=== PATIENT | female | born 1975 | race Caucasian/White ===

== ENCOUNTER 2025-01-02 11:30 | Outpatient (AMB) | payer OTHER, SELFPAY ==
--- NOTE | 2025-01-02 12:13 | A.OFFVIS_ITS ---
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 Allergies azithromycin (From Zithromax) Allergy (Mild, Verified 12/28/24 14:10) Vomiting Medication List - Last Reconciled 01/02/25 by Becky Giraldo MD albuterol sulfate 90 mcg/actuation (Ventolin HFA) 2 puffs inhalation Q6H PRN albuterol sulfate 2.5 mg inhalation Q4-6H PRN atorvastatin (Lipitor) 40 mg PO DAILY benralizumab 30 mg subcut Q8W budesonide 0.25 mg inhalation BID cetirizine (All Day Allergy (cetirizine)) 10 mg PO DAILY PRN cyclobenzaprine 10 mg PO TID 20 days estradiol 1 mg PO DAILY fluticasone propion-salmeterol 500-50 mcg/dose (Wixela Inhub) 1 inh inhalation BID ibuprofen 600 mg PO TID ipratropium-albuterol 20-100 mcg/actuation (Combivent Respimat) 1 puff inhalation Q4H lorazepam 0.5 mg PO DAILY PRN prednisone 60 mg (3 x 20 mg) PO DAILY 10 days quetiapine 400 mg PO BEDTIME HPI Comments Details: This is a 49-year-old right-handed woman who is here for evaluation of bilateral facial pain, right greater than left since October 2025 and a 1 month history of left lower extremity numbness. In 2009 she developed left optic neuritis and subsequently a right optic neuritis from which she recovered completely over 2 or 3 weeks after treatment with intravenous steroids. She was seen by Dr. Alejo peraza at that time and worked up for MS. Previous MRIs were normal. There were no further problems after that so she was not seen in follow-up. Since October she has had bilateral lower facial pain that 1st started on the right side affecting the cheek and the jaw and sometimes switches over to the left side. She is also in constant bilateral pain. She has been evaluated by dentist and rn outpatient surgery and has no obvious explanation for it. In the last month, starting in November she has also had recurrence of the left lower extremity numbness which has not changed significantly. She has to be careful walking to make sure that her foot is in the right place. There is no loss of strength. She also feels exhausted. The pain is fairly constant and affects her sleep as well. Past history is also remarkable for anxiety and insomnia for which she is on Seroquel 400 mg a day and trazodone 50 mg at bedtime. Part of her recent workup has included an MRI of the brain which was normal and an MRI of the thoracic and cervical spines which also showed no evidence of demyelinating disease. There is mild cervical disc disease at C4-5 level. [facility] Medical History (Updated 01/02/25 @ 12:22 by Becky Giraldo MD) Post-COVID syndrome Palpitations Orthostatic dizziness Obesity Multiple sclerosis Long COVID Cervical cancer Hypothyroidism (acquired) Hyperlipemia Fatigue Family history of early CAD Dyslipidemia COVID-19 Asthma Anxiety and depression ADHD Surgical History (Updated 12/28/24 @ 14:01 by ELSIE Smith) Hx of tonsillectomy History of radical hysterectomy Family History (Updated 12/28/24 @ 14:12 by ELSIE Smith) Father CAD (coronary artery disease) Paternal Grandmother Breast cancer Stroke Social History (Updated 12/28/24 @ 14:11 by ELSIE Smith) Alcohol intake: never Patient Tobacco Use Status: Never used Tobacco e-Cigarette/Vaping Use: Never Used Review of Systems Const Details: Weight gain, some difficulty walking because of the left leg numbness bilateral facial pain, numbness and tingling left leg some dizziness and anxiety. Eyes feel heavy. Reports fatigue Musc Reports numbness Neuro Reports numbness Psych Reports anxiety Endo Reports fatigue Physical Exam Neuro Other: ?Mini Mental Status Exam Level of Consciousness:?Alert.? Orientation:?Knows correct year, month, date, day and season.?Knows correct city, county and state. Knows correct location and floor.? Registration:?Able to register 3 objects.? Attention:?Serial 7's performed accurately.? Recall:?Able to recall 3 out of 3 objects.? Language:?Normal spontaneous speech, fluency, repetition, naming, comprehension, reading, and writing.? Total Score:?30/30.? Neurological Abnormal neurological findings:??none.? Mental Status:?Alert and oriented X 3.?Normal attention, orientation, memory, and affect.? Cranial Nerves:?Pupils are equal, round and reactive to light. Fundoscopy shows normal disc bilaterally. External occular muscles are intact. Visual ureña are full, no ptosis. Face is symmetrical, no facial weakness or droop. Facial sensations are normal. Tongue protrudes in midline. Palate elevates symmetrically. Shoulder shrugging is normal.? Motor Examination:?Normal muscle tone, bulk and strength.?No atrophy or fasciculations.?No drift of the extended upper extremities.?Deep tendon reflexes are 2+.?Plantars are flexor.? Motor Strength:? Proximal Muscles (out of 5):?5 Distal Muscles (out of 5):?5 Neck Flexors (out of 5):?5 Neck Extensors (out of 5):?5 Deltoid (out of 5):?5 Biceps (out of 5):?5 Triceps (out of 5):?5 Serratus Anterior (out of 5):?5 Wrist Extensors (out of 5):?5 APB (out of 5):?5 Finger Spread (out of 5):?5 Ileopsoas (out of 5):?5 Quadriceps (out of 5):?5 Hamstrings (out of 5):?5 Tibialis Anterior (out of 5):?5 Peronei (out of 5):?5 EDB (out of 5):?5 Gastrocnemius (out of 5):?5 Straight Leg Raising:?90 degrees.? Sensory Exam:?Normal light touch, temperature, pinprick, vibration and joint-position sensations.?Rhomberg sign is absent.? Coordination:?No ataxia,?no titubation,?gpfrio-zi-vnio, zlwo-tykm-yfkl test, and rapid alternating movements were normal.? Gait Exam:?Within normal limits.? Cerebellar Signs:?Pwpnap-sk-exkd and vpjx-lz-oibu is normal.?No dysdiadochokinesia.? Extrapyramidal System:?No tremor or?rigidity, normal facial expressions.?No bradykinesia. No bradyphrenia. Normal arm swing and posture. No propulsion or retropulsion.? Speech:?Normal,?no dysphasia or dysarthria.? General Examination GENERAL APPEARANCE:??normal,?in no acute distress?,?normal,?in no acute distress.? HEAD:??normocephalic,?atraumatic.? EYES:??sclera non-icteric,?conjunctiva clear.? EARS:??auditory canal clear,?tympanic membrane intact, clear.? NOSE:??no lesions.? ORAL CAVITY:??gums normal,?mucosa moist,?no lesions.? THROAT:??clear.? NECK/THYROID:??no cervical lymphadenopathy,?thyroid normal,?neck supple, full range of motion,?no carotid bruit.? SKIN:??no rashes,?no significant birthmarks.? HEART:??S1, S2 normal,?no murmurs?,?S1, S2 normal,?no murmurs.? LUNGS:??clear anteriorly and posteriorly?,?clear anteriorly and posteriorly.? CHEST:??no gross rib deformity,?clear to auscultation.? BACK:??normal exam of spine.? MUSCULOSKELETAL:??normal.? EXTREMITIES:??no edema?,?no edema.? PERIPHERAL PULSES:??normal.? PSYCH:??alert, oriented,?cognitive function intact,?cooperative with exam?,?alert, oriented,?cognitive function intact,?cooperative with exam.? Assessment & Plan Assessment & Plan (1) Optic neuritis: Code(s): H46.9 - Unspecified optic neuritis Category: Medical (2) Facial pain: Code(s): R51.9 - Headache, unspecified Category: Medical (3) Multiple sclerosis: Comment: Normal brain and spinal cord MRI in 2011 and 2024. Spinal fluid abnormality with positive oligoclonal bands in 2011 Code(s): G35.D - Multiple sclerosis, unspecified Category: Medical (4) Anxiety and depression: Code(s): F41.9 - Anxiety disorder, unspecified; F32.A - Depression, unspecified Category: Medical Plan 2 week course of prednisone in a tapering dose along with cyclobenzaprine 10 mg t.i.d.. Follow-up in 3 weeks Medications: New prednisone 60 mg (3 x 20 mg) PO DAILY 30 tabs 0RF 10 days cyclobenzaprine 10 mg PO TID 60 tabs 0RF 20 days Coding Level of Care Code New Pt Level 5 (18112) Diagnoses Optic neuritis H46.9 Facial pain R51.9 Multiple sclerosis G35.D Anxiety and depression F41.9; F32.A
--- OUTSIDE RECORDS SUMMARY | 2025-01-02 14:47 | XMS_ITS | Clinical Summary ---
Author Organization [facility] Address [address] [place] [address] Care Team Providers Care First Aid Director Name Role Phone Luz Ardon MD Primary Care Provider Allergies Active Allergy Reactions Criticality Noted Date Comments Azithromycin GI Intolerance/Nausea/Vomiting Low 06/2022 Medications QUEtiapine (SEROquel) 200 MG tablet Take 1 tablet (200 mg total) by mouth nightly. Active estradiol (Estrace) 1 MG tablet Take 1 tablet (1 mg total) by mouth daily. Active cycloSPORINE (RESTASIS) 0.05 % ophthalmic emulsion 1 drop twice daily (every 12 hours). Active Fluticasone-Salm eterol (WIXELA INHUB IN) Inhale. Active Active Problems No known active problems Family History Medical History Relation Name Comments Heart attack Father Relation Name Status Comments Father Mother Alive Social History Tobacco Use Types Packs/Day Years Used Date Smoking Tobacco: Never Smokeless Tobacco: Never Tobacco Cessation:Counseling Given: Not Answered Alcohol Use Standard Drinks/Week Comments Never 0 (1 standard drink = 0.6 oz pur e alcohol) PHQ-2 Answer Date Recorded PHQ-2 Total Score 2 02/15/2023 Comments Unknown Sex and Gender Information Value Date Recorded Sex Assigned at Not on file Legal Sex Female 1:31 PM EDT Gender Identity Not on file Sexual Orientation Not on file Plan of Treatment Health Maintenance Due Date Last Done Comments Hepatitis C Virus Screening 1973 HIV Screening 1986 DTaP/Tdap/Td Vaccines (1 - Tdap) 1992 Hepatitis B Vaccines (1 of 3 - 19+ 3-dose series) 1992 Pap Smear (Ages 21-65) 1994 Mammogram 2013 Colonoscopy 2018 Pneumococcal Vaccines 50+ (1 of 1 - PCV) 2023 Zoster (Shingles) Vaccine (1 of 2) 2023 Influenza Vaccine 10/13/2024 01/12/2023, , 12/20/2017, Additional history exists COVID-19 Vaccine (3 - 2024-2 6 season) 2024 10/09/2020, 09/18/2020 RSV Vaccine 50 years and old er and Patients (1 - 1-dose 75+ series) 2048 Insurance Care Teams First Aid Director Relationship Specialty Start Date End Date Luz Ardon MD [address] [place] [address] PCP - General Pediatric, General 02/15/23
== END 2025-01-02 12:29 | disposition home or self-care (01) ==
PROVIDERS: PCP Pediatrics; Visit Provider Psychiatry & Neurology Neurology
DX: H46.9 Unspecified optic neuritis (principal); R51.9 Headache, unspecified; G35.D Multiple sclerosis, unspecified; F41.9 Anxiety disorder, unspecified; F32.A Depression, unspecified
CPT/HCPCS: 99204

== ENCOUNTER 2025-01-24 13:53 | Outpatient (AMB) | payer OTHER, SELFPAY ==
--- OUTSIDE RECORDS SUMMARY | 2025-01-18 23:59 | XMS_ITS | Continuity of Care Document ---
Author Organization [facility] Address [address] [place] [address]- Care Team Providers Care Wine And Spirits Clerk Name Role Phone Luz Ardon DO Primary Care Physician Encounter [facility] [place] Date(s): 12/19/24 - 01/18/25 [facility] [address] [place], [place] [address] Encounter Type: Triage Allergies, Adverse Reactions, Alerts Substance Criticality Severity Reaction Reaction Severity Status Zithromax vomiting Active Immunizations Given and Recorded Vaccine Date Status Refusal Reason influenza virus vaccine, inactivated 1 01/12/23 Gi michelle influenza virus vaccine, inactivated 01/26/21 Beka rded influenza virus vaccine, inactivated 12/20/17 Beka rded influenza virus vaccine, inactivated 12/28/16 Beka rded tetanus/diphtheria/pertussis, acel(Tdap) 10/15/20 Recorded SARS-CoV-2 (COVID-19) mRNA BNT-162b2 vac 10/09/20 Recorded SARS-CoV-2 (COVID-19) mRNA BNT-162b2 vac 09/18/20 Recorded pneumococcal 23-valent vaccine 06/03/19 Recorded Adacel (Tdap) (oldterm) 2 07/20/08 Given 1Result Comment: [id number] 2Admin Note: [facility] Medications Albuterol (Eqv-ProAir HFA) 90 mcg/inh inhalation aerosol 2 puffs, Inhalation, Every 4 hours, PRN NEEDED FOR WHEEZING, # 18 Gm, 2 Refills, Maintenance, 12/29/24 5:45:00 PM EDT, [id number], 2 puffs Inhalation Every 4 hours,PRN: NEEDED FOR WHEEZING, 160.02, cm, 12/18/24 10:40:00 EDT, Height, 66.2, kg, 12/18/24 10:40:00 EDT, Dry Weight Start Date: 12/29/24 Status: Ordered Medication Dispense Status: Completed Quantity: 18.0 Unit: g Total Allowed Fills: 3 Fills Dispensed: 0 albuterol 0.083% inhalation solution 3 mL = 2.5 mg, Inhalation, Every 4 hours, PRN for wheezing/cough/shortness of breath, # 60 each, 0 Refills, Maintenance, 07/17/24 5:11:00 PM EDT, Solution, [id number], Partial fill upon patient request, 160.02, cm, 05/08/24 11:51:00 EST, Height, 63.4, kg, 05/08/24 11:51:00 EST, Dry Weight Start Date: 07/17/24 Status: Ordered Medication Dispense Status: Completed Quantity: 60.0 Unit: each Total Allowed Fills: 1 Fills Dispensed: 0 Alrex 1 drop, Daily at bedtime, both eyeys, 0 Refills, Maintenance, 04/16/20 9:43:00 AM EST, Partial fill upon patient request if the prescription is for a schedule II opioid drug. Start Date: 04/16/20 Status: Ordered Medication Dispense Status: Completed Total Allowed Fills: 1 Fills Dispensed: 0 atorvastatin 40 mg oral tablet 1 tablet = 40 mg, By Mouth, Daily, # 90 tablet, 1 Refills, Maintenance, 05/31/24 9:59:00 AM EDT, Tablet, [id number], Partial fill upon patient request if the prescription is for a schedule II opioid drug., 160.02, cm, 05/08/24 11:51:00 EST, Height, 63.4, kg, 05/08/24 11:51:00 EST, Dry Weight Start Date: 05/31/24 Status: Ordered Medication Dispense Status: Completed Quantity: 90.0 Unit: tablet Total Allowed Fills: 2 Fills Dispensed: 0 budesonide 0.25 mg/2 mL inhalation suspension 1 units, 2, mL, Neb, 2 times a day, one vial via nebulizer twice a day, # 120 mL, Refills 0, Tot. Refills 0, Maintenance, 07/14/24 5:22:00 PM EDT, Route to Pharmacy Electronically, [id number], [facility], 160.02, cm, 05/08/24 11:51:00 EST, Height, 63.4, kg, 05/08/24 11:51:00 EST, Dry Weight Start Date: 07/14/24 Stop Date: 08/13/24 Status: Ordered Medication Dispense Status: Completed Quantity: 120.0 Unit: mL Total Allowed Fills: 1 Fills Dispensed: 0 Combivent Respimat 20 mcg-100 mcg/inh inhalation aerosol 1 inhalation, Inhalation, 4 times a day, PRN Wheezing/Shortness of Breath, # 4 Gm, 0 Refills, Maintenance, 03/23/24 9:18:00 AM EST, Aerosol, [facility], Partial fill upon patient request if the prescription is for a schedule II opioid drug., 1 inhalation Inhalation 4 times a day,x30 days ,PRN:Wheezing/Shortness of Breath, 160.02, cm, 02/15/24 9:10:00 EST, Height, 61, kg, 02/15/24 9:10:00 EST, Dry Weight Start Date: 03/23/24 Stop Date: 04/22/24 Status: Ordered Medication Dispense Status: Completed Quantity: 4.0 Unit: g Total Allowed Fills: 1 Fills Dispensed: 0 estradiol 1 mg oral tablet 1 mg, 1, tablet, By Mouth, Daily in AM, # 90 tablet, Refills 0, Maintenance, 07/26/18 10:21:49 AM EDT Start Date: 07/26/18 Status: Ordered Medication Dispense Status: Completed Quantity: 90.0 Unit: tablet Total Allowed Fills: 1 Fills Dispensed: 0 Fasenra Pen 30 mg/mL subcutaneous solution See Instructions, 30 mg Subcutaneous Infusion every 4 weeks for 3 doses adn then every 8 weeks, j45.40, # 1 each, 11 Refills, Maintenance, 04/26/24 3:09:00 PM EST, Partial fill upon patient request ifthe prescription is for a schedule II opioid drug. Start Date: 04/26/24 Status: Ordered Medication Dispense Status: Completed Quantity: 1.0 Unit: each Total Allowed Fills: 12 Fills Dispensed: 0 ibuprofen 600 mg oral tablet 600 mg, 1, tablet, By Mouth, 3 times a day, PRN, # 60 tablet, Refills 0, Tot. Refills 0, Maintenance, Pain , Moderate, 12/24/23 10:09:00 AM EDT, Route to Pharmacy Electronically, [id number], Partial fill upon patient request if the prescription is for a schedule II opioid drug., 160.02, cm, 12/20/23 13:05:00 EDT, Height, 62.6, kg, 11/08/23 11:32:00 EDT, Dry Weight Start Date: 12/24/23 Status: Ordered Medication Dispense Status: Completed Quantity: 60.0 Unit: tablet Total Allowed Fills: 1 Fills Dispensed: 0 loratadine 10 mg oral tablet 10 mg, 1, tablet, By Mouth, Daily, # 90 tablet, Refills 1, Tot. Refills 1, Maintenance, 12/29/24 5:47:00 PM EDT, [id number] Partial fill upon patient request if the prescription is for a schedule II opioid drug., 160.02, cm, 12/18/24 10:40:00 EDT, Height, 66.2, kg, 12/18/24 10:40:00 EDT, Dry Weight Start Date: 12/29/24 Status: Ordered Medication Dispense Status: Completed Quantity: 90.0 Unit: tablet Total Allowed Fills: 2 Fills Dispensed: 0 LORazepam 0.5 mg oral tablet TAKE 1 TO 2 TABLETS BY MOUTH TWO TIMES A DAY NEEDED FOR PANIC Start Date: 12/10/22 Status: Ordered Medication Dispense Status: Completed Total Allowed Fills: 1 Fills Dispensed: 0 Nebulizer/Compressor See Instructions, # 1 each, Maintenance, for use with albuterol, 07/27/24 3:46:00 PM EDT, Supply Start Date: 07/27/24 Status: Ordered Medication Dispense Status: Completed Quantity: 1.0 Unit: each Total Allowed Fills: 1 Fills Dispensed: 0 Indications: Unspecified asthma, uncomplicated; Restasis MultiDose 1 drop, Every 12 hours, both eyes, 0 Refills, Maintenance, 04/16/20 9:42:00 AM EST, Partial fill uponpatient request if the prescription is for a schedule II opioid drug. Start Date: 04/16/20 Status: Ordered Medication Dispense Status: Completed Total Allowed Fills: 1 Fills Dispensed: 0 Seroquel 400 mg oral tablet 1 tablet = 400 mg, By Mouth, Daily at bedtime, 0 Refills, 02/19/09 3:19:57 PM EST Start Date: 02/19/09 Status: Ordered Medication Dispense Status: Completed Total Allowed Fills: 1 Fills Dispensed: 0 Wixela Inhub 500 mcg-50 mcg inhalation powder 1 puffs, Inhalation, 2 times a day, RINSE MOUTH AND THROAT AFTER USE; contact human performance consultant for further refills, # 60 each, 3 Refills, Maintenance, 12/29/24 5:45:00 PM EDT, [id number], 30, 1 puffs Inhalation 2 times a day,Instr:RINSE MOUTH AND THROAT AFTER USE; contact human performance consultant for further refills, 160.02, cm, 12/18/24 10:40:00 EDT, Height, 66.2, kg, 12/18/24 10:40:00 EDT, Dry Weight Start Date: 12/29/24 Status: Ordered Medication Dispense Status: Completed Quantity: 60.0 Unit: each Total Allowed Fills: 4 Fills Dispensed: 0 Indications: Unspecified asthma, uncomplicated; Problem List Condition Confirmation Course Effective Dates Status H ealth Status Informant Anxiety depression Confirmed Active ASTHMA - moderate persistent Confirmed 1982 Active ADHD Confirmed Active Long COVID Confirmed Active COVID-19 virus infection Confirmed Active Post-COVID syndrome Confirmed Active Dyslipidemia Confirmed Active Family history of early CAD Confirmed Active Fatigue Confirmed Active HLD (hyperlipidemia) Confirmed Active Hypothyroidism Confirmed Active [employer] cervical cancer (FIGO CC) stage 0 Confirmed 2003 Active Multiple sclerosis Confirmed Active Obesity Confirmed Active Palpitations Confirmed Active Orthostatic dizziness Confirmed Active Patient Care team information Care Team Personnel Name: Luz Ardon DO Position: S Physician - Primary Care Member Role: PCP Address: [address] [place] [address] [facility] [address] Telecom: Care Team Related Persons Name: ANTHONY ZHANG Name: ROSEMARIE PETERSON Insurance Providers Guarantor name: TROY HERMOSILLO [facility] Plan Information #: 1 Payer: [employer] NON HMO PLANS Payer Identifier: NA Member Number: [id number] Group Number: [id number] Subscriber Identifier: NA Relationship to Subscriber: self Coverage Type: Managed Care (Private) Coverage Verification Date: Telecom: AMEENA Address: NA
--- OUTSIDE RECORDS SUMMARY | 2025-01-19 23:59 | XMS_ITS | Continuity of Care Document ---
Author Organization [facility] Address [address] [place] [address] [address] [place] [address]- Care Team Providers Care Mold Filler Name Role Phone Luz Ardon DO Primary Care Physician [place] [facility] [place] 01/19/25 [facility] [address] [facility] [address] [place] [address]- Attending Physician: AdmtrJulio Cesar8 Admitting Physician: Admtr, ArVale Referring Physician: Admtr, Ar8 Encounter Type: Triage Allergies, Adverse Reactions, Alerts [...] (Tdap) (oldterm) 2 07/20/08 Given 1Result Comment: [id number] 2Admin Note: [facility] Medications Albuterol (Eqv-ProAir HFA) 90 mcg/inh inhalation aerosol 2 puffs, Inhalation, Every 4 hours, PRN NEEDED FOR WHEEZING, # 18 Gm, 2 Refills, Maintenance, 12/29/24 5:45:00 PM EDT, [facility] #[id number], 2 puffs Inhalation Every 4 hours,PRN: [...] Refills, Maintenance, 07/17/24 5:11:00 PM EDT, Solution, [facility][id number], Partial fill upon patient request, 160.02, cm, [...] Refills, Maintenance, 05/31/24 9:59:00 AM EDT, Tablet, [id number], Partial fill upon patient request if the [...] 5:22:00 PM EDT, Route to Pharmacy Electronically, [id number], [facility], 160.02, cm, 05/08/24 11:51:00 EST, Height, [...] Refills, Maintenance, 03/23/24 9:18:00 AM EST, Aerosol, [facility], Partial fill upon patient request if [...] 10:09:00 AM EDT, Route to Pharmacy Electronically, [facility][id number], Partial fill upon patient request if the [...] 5:47:00 PM EDT, Route to Pharmacy Electronically, [facility]/pharmacy #[id number], Partial fill upon patient request if the [...] RINSE MOUTH AND THROAT AFTER USE; contact purse maker for further refills, # 60 each, 3 Refills, Maintenance, 12/29/24 5:45:00 PM EDT, [facility]/pharmacy #[id number], 30, 1 puffs Inhalation 2 times a day,Instr:RINSE MOUTH AND THROAT AFTER USE; contact purse maker for further refills, 160.02, cm, 12/18/24 10:40:00 [...] - Primary Care Member Role: PCP Address: [address] [place] [address] Adult & Pediatric Medicine [place], [place] [address] Telecom: Care Team Related Persons Name: LEATHA ANTHONY Name: ROSEMARIE PETERSON Insurance Providers Guarantor name: TROY BAY [facility] Plan Information #: 1 [facility] Payer Identifier: NA Member Number: [id number] Group Number: [id number] Subscriber Identifier: NA Relationship to Subscriber: self Coverage Type: Managed Care (Private) Coverage Verification Date: NA Telecom: NA Address: NA
--- OUTSIDE RECORDS SUMMARY | 2025-01-19 23:59 | XMS_ITS | Continuity of Care Document ---
Author Organization [facility] Address [address] [place] [address]- Care Team Providers Care Outsole Rounder Name Role Phone Luz Ardon DO Primary Care Physician Encounter [facility] [id number] Date(s): 12/01/24 - 01/19/25 [facility] [address] [place] [address] Attending Physician: Jaspal Coello II, MD Admitting Physician: Jaspal Coello II, MD Referring Physician: Luz Ardon DO Encounter Type: Pre-OutPatient One Time Allergies, Adverse Reactions, Alerts Substance Criticality Severity [...] (Tdap) (oldterm) 2 07/20/08 Given 1Result Comment: [id number] 2Admin Note: [facility] Medications Albuterol (Eqv-ProAir HFA) 90 mcg/inh inhalation aerosol 2 puffs, Inhalation, Every 4 hours, PRN NEEDED FOR WHEEZING, # 18 Gm, 2 Refills, Maintenance, 12/29/24 5:45:00 PM EDT, [facility]/pharmacy #[id number], 2 puffs Inhalation Every 4 [...] Refills, Maintenance, 07/17/24 5:11:00 PM EDT, Solution, [facility] #[id number], Partial fill upon patient request, 160.02, cm, [...] Refills, Maintenance, 05/31/24 9:59:00 AM EDT, Tablet, [facility] #[id number], Partial fill upon patient request if the [...] 5:22:00 PM EDT, Route to Pharmacy Electronically, [id number], [facility], 160.02, cm, 05/08/24 11:51:00 EST, Height, [...] Refills, Maintenance, 03/23/24 9:18:00 AM EST, Aerosol, [facility], Partial fill upon patient request if [...] 10:09:00 AM EDT, Route to Pharmacy Electronically, [facility]#[id number], Partial fill upon patient request if the [...] PM EDT, Route to Pharmacy Electronically, [facility]/pharmacy #[id number], Partial fill upon patient request if the [...] RINSE MOUTH AND THROAT AFTER USE; contact die repairer trimmer dies for further refills, # 60 each, 3 Refills, Maintenance, 12/29/24 5:45:00 PM EDT, [facility]/pharmacy #[id number], 30, 1 puffs Inhalation 2 times a day,Instr:RINSE MOUTH AND THROAT AFTER USE; contact die repairer trimmer dies for further refills, 160.02, cm, 12/18/24 10:40:00 [...] - Primary Care Member Role: PCP Address: [address] [place] [address] Adult [facility] [place] [address]- Telecom: Care Team Related Persons Name: ANTHONY ZHANG Name: ROSEMARIE PETERSON Insurance Providers Guarantor name: TROY HERMOSILLO [employer] Plan Information #: 1 Payer: [employer]ENA NON HMO PLANS Payer Identifier: NA Member Number: [id number] Group Number: [id number] Subscriber Identifier: [id number] Relationship to Subscriber: self Coverage Type: Managed Care (Private) Coverage Verification Date: NA Telecom: NA Address: NA
--- OUTSIDE RECORDS SUMMARY | 2025-01-20 23:59 | XMS_ITS | Continuity of Care Document ---
Author Organization [facility] Address [address] [place] [address]- Care Team Providers Care Proc Tech Name Role Phone Luz Ardon DO Primary Care Physician Encounter [facility] Date(s): 12/21/24 - 01/20/25 [facility] [address] [place], [place] [address] Encounter Type: Triage Allergies, Adverse Reactions, Alerts [...] (Tdap) (oldterm) 2 07/20/08 Given 1Result Comment: [id number] 2Admin Note: [facility] Medications Albuterol (Eqv-ProAir [...] Refills, Maintenance, 07/17/24 5:11:00 PM EDT, Solution, [facility] #[id number], Partial fill upon patient request, 160.02, cm, [...] Refills, Maintenance, 05/31/24 9:59:00 AM EDT, Tablet, [facility] #[id number], Partial fill upon patient request if the [...] 5:22:00 PM EDT, Route to Pharmacy Electronically, [id number], [facility], 160.02, cm, 05/08/24 11:51:00 [...] Refills, Maintenance, 03/23/24 9:18:00 AM EST, Aerosol, [facility] 3, Partial fill upon patient request if [...] 10:09:00 AM EDT, Route to Pharmacy Electronically, [facility]#[id number], Partial fill upon patient request if the [...] 5:47:00 PM EDT, [id number] Partial fill upon patient request if the [...] RINSE MOUTH AND THROAT AFTER USE; contact public speaking instructor for further refills, # 60 each, 3 Refills, Maintenance, 12/29/24 5:45:00 PM EDT, [facility]/pharmacy #[id number], 30, 1 puffs Inhalation 2 times a day,Instr:RINSE MOUTH AND THROAT AFTER USE; contact public speaking instructor for further refills, 160.02, cm, 12/18/24 10:40:00 [...] Team Personnel Name: Luz Ardon DO Position: [facility] Physician - Primary Care Member Role: PCP Address: [address] [place] [address] Adult & Pediatric Medicine [address] Telecom: Care Team Related Persons Name: ANTHONY ZHANG Name: ROSEMARIE PETERSON Insurance Providers Guarantor name: TROY HERMOSILLO [facility] Plan Information #: 1 Payer: [employer]ENA NON HMO PLANS Payer Identifier: NA Member Number: [id number] Group Number: [id number] Subscriber Identifier: NA Relationship to Subscriber: self Coverage Type: Managed Care (Private) Coverage Verification Date: Telecom: AMEENA Address: NA
--- NOTE | 2025-01-24 14:14 | MHC.OFFVIS ---
Intake Visit Reasons: 3 weeks Allergies azithromycin (From Zithromax) Allergy (Mild, Verified 12/28/24 14:10) Vomiting Medication List - Last Reconciled 01/24/25 by Becky Giraldo MD albuterol sulfate 90 mcg/actuation (Ventolin HFA) 2 puffs inhalation Q6H PRN albuterol sulfate 2.5 mg inhalation Q4-6H PRN atorvastatin (Lipitor) 40 mg PO DAILY benralizumab 30 mg subcut Q8W budesonide 0.25 mg inhalation BID cetirizine (All Day Allergy (cetirizine)) 10 mg PO DAILY PRN estradiol 1 mg PO DAILY fluticasone propion-salmeterol 500-50 mcg/dose (Wixela Inhub) 1 inh inhalation BID ibuprofen 600 mg PO TID ipratropium-albuterol 20-100 mcg/actuation (Combivent Respimat) 1 puff inhalation Q4H lorazepam 0.5 mg PO DAILY PRN quetiapine 400 mg PO BEDTIME HPI Comments Details: This is a 49-year-old right-handed woman who is here for evaluation of bilateral facial pain, right greater than left since 2024, mostly right cheek and right upper cheek pain and tingling and a 1 month history of left lower extremity numbness. Both symptoms are exactly the same. No change with steroids for 2 weeks. In 2009 she developed left optic neuritis and subsequently a right optic neuritis from which she recovered completely over 2 or 3 weeks after treatment with intravenous steroids. She was seen by Dr. Shields at that time and worked up for MS. Previous MRIs were normal. There were no further problems after that so she was not seen in follow-up. Since October she has had bilateral lower facial pain that 1st started on the right side affecting the cheek and the jaw and sometimes switches over to the left side. She is also in constant bilateral pain. She has been evaluated by dentist and maintenance painter and has no obvious explanation for it. In the last month, starting in November she has also had recurrence of the left lower extremity numbness which has not changed significantly. She has to be careful walking to make sure that her foot is in the right place. There is no loss of strength. She also feels exhausted. The pain is fairly constant and affects her sleep as well. Past history is also remarkable for anxiety and insomnia for which she is on Seroquel 400 mg a day and trazodone 50 mg at bedtime. Part of her recent workup has included an MRI of the brain which was normal and an MRI of the thoracic and cervical spines which also showed no evidence of demyelinating disease. There is mild cervical disc disease at C4-5 level. [facility] Medical History (Updated 01/02/25 @ 12:22 by Becky Giraldo MD) Post-COVID syndrome Palpitations Orthostatic dizziness Obesity Multiple sclerosis Long COVID Cervical cancer Hypothyroidism (acquired) Hyperlipemia Fatigue Family history of early CAD Dyslipidemia COVID-19 Asthma Anxiety and depression ADHD Surgical History (Updated 12/28/24 @ 14:01 by ELSIE Smith) Hx of tonsillectomy History of radical hysterectomy Family History (Updated 12/28/24 @ 14:12 by ELSIE Smith) Father CAD (coronary artery disease) Paternal Grandmother Breast cancer Stroke Social History (Updated 12/28/24 @ 14:11 by ELSIE Smith) Alcohol intake: never Patient Tobacco Use Status: Never used Tobacco e-Cigarette/Vaping Use: Never Used Review of Systems Const Details: Weight gain, some difficulty walking because of the left leg numbness bilateral facial pain, numbness and tingling left leg some dizziness and anxiety. Eyes feel heavy. Reports fatigue Musc Reports numbness Neuro Reports numbness Psych Reports anxiety Endo Reports fatigue Physical Exam Neuro Other: ?Mini Mental Status Exam Level of Consciousness:?Alert.? Orientation:?Knows correct year, month, date, day and season.?Knows correct city, county and state. Knows correct location and floor.? Registration:?Able to register 3 objects.? Attention:?Serial 7's performed accurately.? Recall:?Able to recall 3 out of 3 objects.? Language:?Normal spontaneous speech, fluency, repetition, naming, comprehension, reading, and writing.? Total Score:?30/30.? Neurological Abnormal neurological findings:??none.? Mental Status:?Alert and oriented X 3.?Normal attention, orientation, memory, and affect.? Cranial Nerves:?Pupils are equal, round and reactive to light. Fundoscopy shows normal disc bilaterally. External occular muscles are intact. Visual ureña are full, no ptosis. Face is symmetrical, no facial weakness or droop. Facial sensations are normal. Tongue protrudes in midline. Palate elevates symmetrically. Shoulder shrugging is normal.? Motor Examination:?Normal muscle tone, bulk and strength.?No atrophy or fasciculations.?No drift of the extended upper extremities.?Deep tendon reflexes are 2+.?Plantars are flexor.? Motor Strength:? Proximal Muscles (out of 5):?5 Distal Muscles (out of 5):?5 Neck Flexors (out of 5):?5 Neck Extensors (out of 5):?5 Deltoid (out of 5):?5 Biceps (out of 5):?5 Triceps (out of 5):?5 Serratus Anterior (out of 5):?5 Wrist Extensors (out of 5):?5 APB (out of 5):?5 Finger Spread (out of 5):?5 Ileopsoas (out of 5):?5 Quadriceps (out of 5):?5 Hamstrings (out of 5):?5 Tibialis Anterior (out of 5):?5 Peronei (out of 5):?5 EDB (out of 5):?5 Gastrocnemius (out of 5):?5 Straight Leg Raising:?90 degrees.? Sensory Exam:?Normal light touch, temperature, pinprick, vibration and joint-position sensations.?Rhomberg sign is absent.? Coordination:?No ataxia,?no titubation,?oihzzy-va-fixe, hkln-wccg-nnvz test, and rapid alternating movements were normal.? Gait Exam:?Within normal limits.? Cerebellar Signs:?Nqpnuq-qt-fsba and rkpo-mi-qphr is normal.?No dysdiadochokinesia.? Extrapyramidal System:?No tremor or?rigidity, normal facial expressions.?No bradykinesia. No bradyphrenia. Normal arm swing and posture. No propulsion or retropulsion.? Speech:?Normal,?no dysphasia or dysarthria.? General Examination GENERAL APPEARANCE:??normal,?in no acute distress?,?normal,?in no acute distress.? HEAD:??normocephalic,?atraumatic.? EYES:??sclera non-icteric,?conjunctiva clear.? EARS:??auditory canal clear,?tympanic membrane intact, clear.? NOSE:??no lesions.? ORAL CAVITY:??gums normal,?mucosa moist,?no lesions.? THROAT:??clear.? NECK/THYROID:??no cervical lymphadenopathy,?thyroid normal,?neck supple, full range of motion,?no carotid bruit.? SKIN:??no rashes,?no significant birthmarks.? HEART:??S1, S2 normal,?no murmurs?,?S1, S2 normal,?no murmurs.? LUNGS:??clear anteriorly and posteriorly?,?clear anteriorly and posteriorly.? CHEST:??no gross rib deformity,?clear to auscultation.? BACK:??normal exam of spine.? MUSCULOSKELETAL:??normal.? EXTREMITIES:??no edema?,?no edema.? PERIPHERAL PULSES:??normal.? PSYCH:??alert, oriented,?cognitive function intact,?cooperative with exam?,?alert, oriented,?cognitive function intact,?cooperative with exam.? Assessment & Plan Assessment & Plan (1) Facial pain: Code(s): R51.9 - Headache, unspecified Category: Medical (2) Multiple sclerosis: Comment: Normal brain and spinal cord MRI in 2011 and 2024. Spinal fluid abnormality with positive oligoclonal bands in 2011 Code(s): G35.D - Multiple sclerosis, unspecified Category: Medical (3) Optic neuritis: Code(s): H46.9 - Unspecified optic neuritis Category: Medical (4) Anxiety and depression: Code(s): F41.9 - Anxiety disorder, unspecified; F32.A - Depression, unspecified Category: Medical Plan Start Gabapentin 300mg and increase as tolerated Medications: New gabapentin 300 mg PO Q8H 90 caps 3RF 30 days Coding Level of Care Code Est Pt Level 4 (73087) Diagnoses Facial pain R51.9 Multiple sclerosis G35.D Optic neuritis H46.9 Anxiety and depression F41.9; F32.A
--- OUTSIDE RECORDS SUMMARY | 2025-01-24 17:05 | XMS_ITS | Clinical Summary ---
Author Organization [address] [facility] Address [address] [place] [address] Phone Care Team Providers Care Hogshead Cooper Name Role Phone Frank Callejas MD Primary Care Provider Social History Tobacco Use Types Packs/Day Years Used Date Smoking Tobacco: Never Assessed Comments Unknown Sex and Gender Information Value Date Recorded Sex Assigned at Not on file Legal Sex Female 2:45 AM EST Gender Identity Not on file Sexual Orientation Not on file Plan of Treatment Upcoming Encounters Date Type Department Care Team ([facility] st Contact Info) Description 02/01/2025 2:00 PM EST Consult [facility] [address] [facility] [address] [place] [address] Frank Cabrera MD [address] [place], [place] [id number] Health Maintenance Due Date Last Done Comments Breast Cancer Screening 1973 Colorectal Cancer Screening: Colonoscopy 1973 DTaP,Tdap,and Td Vaccines (1 - Tdap) 1992 Hepatitis B Vaccines (1 of 3 - 19+ 3-dose series) 1992 Pneumococcal Vaccine: 50+ Ye ars (1 of 2 - PCV) 1992 Cervical Cancer Screening: P ap Smear 1994 RSV Immunization Adult Patie nts (1 - Risk 50-74 years 1-dose series) 2023 Zoster Vaccines (1 of 2) 2023 Depression Screening 03/15/2024 COVID-19 Vaccine ( - 2024-2 6 season) 2024 Influenza Vaccine (#1) 2024 HIV Screening 12/21/2024 Hepatitis C Screening 12/21/2024 Social Influencers of Health Screening 12/21/2024 HIB Vaccines Aged Out No longer eligi ble based on patient's age to complete this topic HPV Vaccines Aged Out No longer eligi ble based on patient's age to complete this topic Hepatitis A Vaccines Aged Out No long er eligible based on patient's age to complete this topic IPV Vaccines Aged Out No longer eligi ble based on patient's age to complete this topic MMR Vaccines Aged Out No longer eligi ble based on patient's age to complete this topic Meningococcal ACWY Vaccine Aged Out N o longer eligible based on patient's age to complete this topic Meningococcal B Vaccine Aged Out No l onger eligible based on patient's age to complete this topic RSV Immunization Patients Un nava 20 months Aged Out No longer eligible b ased on patient's age to complete this topic Varicella Vaccines Aged Out No longer eligible based on patient's age to complete this topic Insurance [employer] Care Teams Hogshead Cooper Relationship Specialty Start Date End Date Frank Callejas MD [address] [place] [address] RIGO CARD [id number] PCP - General Internal Medicine 12/21/24
--- OUTSIDE RECORDS SUMMARY | 2025-01-24 17:05 | XMS_ITS | Clinical Summary ---
Author Organization [facility] Address [address] [place] [address] Care Team Providers Care Metalworking Instructor Name Role Phone Luz Ardon MD Primary [...] 1-dose 75+ series) 2048 Insurance Care Teams Metalworking Instructor Relationship Specialty Start Date End Date Luz Ardon MD [address] [place] [address] PCP - General Pediatric, General 02/15/23
== END 2025-01-24 14:24 | disposition home or self-care (01) ==
LOC: HO.HSM 13:54
PROVIDERS: PCP Pediatrics; Visit Provider Psychiatry & Neurology Neurology
DX: R51.9 Headache, unspecified (principal); G35.D Multiple sclerosis, unspecified; H46.9 Unspecified optic neuritis; F41.9 Anxiety disorder, unspecified; F32.A Depression, unspecified
CPT/HCPCS: 99214